=== PATIENT | female | born 1975 | race Caucasian/White ===

== ENCOUNTER 2024-04-05 17:30 | Emergency (ER) | payer OTHER ==
--- NOTE | 2024-04-05 17:35 | ERPHSYRPT ---
- History of Present Illness Time Seen by Provider: 04/05/24 17:34 Source: patient, family Exam Limitations: no limitations Physician History: This is an overweight 49-year-old white female patient who noticed at approximately noon today, that she was having some mild pelvic throbbing sensation with associated cloudy urine, urinary frequency and urgency. She states that she has had the symptoms before and there was an obvious urinary tract infection. She did not want to wait to be treated at a later time. Patient has a history of depression. Timing/Duration: today Activites at Onset: none Quality: throbbing Onset Location: pelvic pain Pain Radiation: none Severity of Pain-Max: mild Severity of Pain-Current: none Prior abdominal problems: UTI Sexual intercourse history: non-contributory Modifying Factors: Improves With: nothing Associated Symptoms: urinary frequency, other (Urgency) Allergies/Adverse Reactions: No Known Drug Allergies Allergy (Unverified 04/05/24 17:41) Home Medications: Amitriptyline HCl 100 mg PO DAILY 04/05/24 [History] Fluoxetine HCl 10 mg [Prozac 10 mg] 20 mg PO DAILY 04/05/24 [History] Travel Risk - International Travel Have you traveled outside of the country in past 3 weeks: No - Emerging Infectious Disease Are you exhibiting symptoms associated with any current EIDs: No - Review of Systems Constitutional: No Symptoms Eyes: No Symptoms Ears, Nose, & Throat: No Symptoms Respiratory: No Symptoms Cardiac: No Symptoms Abdominal/Gastrointestinal: No Symptoms Genitourinary Symptoms: Frequency, Urgency, No Flank Pain Musculoskeletal: No Symptoms Skin: No Symptoms Neurological: No Symptoms Psychological: No Symptoms Endocrine: No Symptoms Hematologic/Lymphatic: No Symptoms Immunological/Allergic: No Symptoms All Other Systems: Reviewed and Negative - Past Medical History Pertinent Past Medical History: Yes - Past Surgical History Past Surgical History: Yes - Nursing Vital Signs Nursing Vital Signs: Initial Vital Signs Temperature 98.5 F 04/05/24 17:44 Pulse Rate 78 04/05/24 17:44 Respiratory Rate 18 04/05/24 17:44 Blood Pressure 162/108 04/05/24 17:44 O2 Sat by Pulse Oximetry 98 04/05/24 17:44 Pain Scale Pain Intensity 8 - Physical Exam General Appearance: no apparent distress, alert, anxiety, obese Eye Exam: PERRL/EOMI, eyes nml inspection Ears, Nose, Throat Exam: normal ENT inspection, moist mucous membranes Neck Exam: normal inspection, non-tender, supple, full range of motion Respiratory Exam: airway intact, No chest tenderness, No respiratory distress Gastrointestinal/Abdomen Exam: No tenderness Pelvic Exam: not done Rectal Exam: not done Back Exam: normal inspection, normal range of motion, No CVA tenderness, No vertebral tenderness Extremity Exam: normal inspection, normal range of motion, pelvis stable Neurologic Exam: alert, oriented x 3, cooperative, montessori paraprofessional II-XII nml as tested, nml cerebellar function, nml station & gait, sensation nml Skin Exam: normal color, warm, dry Lymphatic Exam: No adenopathy SpO2 Interpretation: normal O2 Delivery: Room Air - Course Nursing assessment & vital signs reviewed: Yes Ordered Tests: Active Orders 24 hr Category Date Time Status CULTURE,URINE Stat Lab 04/05/24 18:00 Received UA W/RFX UR CULTURE Stat Lab 04/05/24 18:00 Completed Medication Summary Discontinued Medications Generic Name Dose Route Start Last Admin Trade Name Jonesq PRN Reason Stop Dose Admin Levofloxacin 500 mg 04/05/24 18:29 Levofloxacin 500 Mg Tablet PO 04/05/24 18:30 STAT ONE Lab/Rad Data: Laboratory Results 04/05/24 Range/Units 18:00 Urine Color Yellow (Yellow) Urine Appearance Turbid A (Clear) Urine pH 6.0 (4.6-8.0) Ur Specific [facility] 1.020 (1.005-1.030) Urine Protein 300 A (Negative) Urine Glucose (UA) Negative (Negative) mg/dL Urine Ketones Trace A (Negative) Urine Blood Large A (Negative) Urine Nitrite Positive A (Negative) Urine Bilirubin Negative (Negative) Urine Urobilinogen 1.0 A (0.2) mg/dL Ur Leukocyte Esterase Large A (Negative) U Hyaline Cast (Auto) NONE SEEN (0-2) /LPF Urine Microscopic RBC >100 A (0-5) /HPF Urine Microscopic WBC >100 A (0-5) /HPF Ur Epithelial Cells Few (None Seen) /HPF Urine Bacteria Moderate A (None Seen) /HPF Urine Culture Reflexed YES (NO) - Progress Progress: unchanged Air Movement: good Progress Note: 04/05/24 18:07 My medical decision making in the assignment of low complexity to this patient's medical issue today is based on review of the patient's past medical history, reviewed the patient's medication list, history of present illness on physical findings on examination. The workup today includes urinalysis. 04/05/24 18:30 I interpreted the patient's laboratory data results. Patient has a significant urinary tract infection. Blood Culture(s) Obtained: No Antibiotics given: No Counseled pt/family regarding: lab results, diagnosis, need for follow-up Medical Desision Making - Diagnostic Testing Diagnostic test were ordered, analyzed, and reviewed by me: Yes - Risk of complications The pt has a mod risk of morbidity or mortality based on: Need for prescription drug management - Departure Departure Disposition: Home Clinical Impression: UTI (urinary tract infection) Condition: Stable Critical Care Time: No Referrals: MASON AUSTIN MD [Primary Care Provider] - Follow up/PCP as directed Additional Instructions: Drink plenty of clear liquids. Take your antibiotics as prescribed. Call your primary care provider tomorrow, 04/06/2024 to make arrangement for follow-up appointment to be seen in the next 5 to 7 days. Use Tylenol and ibuprofen for pain and fever control. Prescriptions: Ciprofloxacin [Cipro 500 MG] 500 mg PO BID #14 tablet
[2024-04-05 17:45] VITALS: BP 162/108; PULSE 78; RESP 18; TEMP 98.5; O2SAT 98
[2024-04-05 18:10] LABS: ADD URINE CULTURE? YES (NO); Appearance Turbid (Clear); Bacteria Moderate /HPF (None Seen); Bilirubin Negative (Negative); Blood Large (Negative); Epithelial Cells Few /HPF (None Seen); Glucose, Urine Negative (Negative); Hyaline Casts NONE SEEN /LPF (0-2); Ketones Trace (Negative); Leukocyte Esterase Large (Negative); Nitrite Positive (Negative); Protein,Urine Dip 300 (Negative); RBC >100 /HPF (0-5); WBC >100 /HPF (0-5)
[2024-04-05] MEDS ORDERED: Levofloxacin 500 MG Tablet ONE (18:32)
[2024-04-05] MEDS: Levofloxacin 500 MG Tablet PO ONE (18:33)
[2024-04-05] MEDS ORDERED: NORCO 5/325 MG ONE (18:40)
[2024-04-05] MEDS: NORCO 5/325 MG PO ONE (18:42)
[2024-04-05] MEDS ORDERED: PYRIDIUM 200 MG ONE (18:49)
[2024-04-05] MEDS: PYRIDIUM 200 MG PO ONE (18:49)
== END 2024-04-05 18:56 | disposition home or self-care (01) ==
LOC: ED 17:30
DX: N39.0 Urinary tract infection, site not specified (principal); R35.0 Frequency of micturition; R10.2 Pelvic and perineal pain; R39.15 Urgency of urination; Z79.899 Other long term (current) drug therapy
CPT/HCPCS: 81001; 87077; 87086; 87186; 99283; A9270-GY